=== PATIENT | female | born 1990 | race Hispanic/Latino ===

== ENCOUNTER 2023-04-13 07:39 | Day surgery (SDC) | payer MEDICAID ==
[2023-04-09 10:01] LABS: EOSINOPHILS % (AUTO) 2.6 % (0.0-8.0); LYMPHOCYTES % (AUTO) 30.1 % (21.0-51.0); MEAN CORPUSCULAR HEMOGLOBIN 30.5 pg (27.0-33.0); MEAN CORPUSCULAR HGB CONC 32.1 g/dL (32.0-36.0); MEAN CORPUSCULAR VOLUME 94.9 fL (79-99); MONOCYTES % (AUTO) 6.8 % (3.0-13.0); NEUTROPHILS % (AUTO) 59.1 % (40.0-77.0); PLATELET COUNT (AUTO) 271 K/uL (130-400); RED BLOOD CELL COUNT(AUTO) 4.53 MIL/uL (4.00-5.50); RED CELL DISTRIBUTION WIDTH 12.4 % (11.0-15.5)
[2023-04-13] VITALS (18 sets, daily range): BP systolic 108–128; BP diastolic 55–75
[~2023-04-13 07:39] MED LIST: LEVO75 PO; LIOT5TAB11 PO; SENN8.6T90 PO; VITAMIN B PO; VITAMIN D PO
[2023-04-13] MEDS ORDERED: CEFAZOLIN SODIUM 2 GM VIAL ONE (09:13)
[2023-04-13] MEDS ORDERED: LACTATED RINGERS 1000ML 1,000 ML IV ONE (09:13)
[2023-04-13] MEDS ORDERED: FAMOTIDINE 20MG VIAL IV ONE (10:02)
[2023-04-13] MEDS ORDERED: MIDAZOLAM HCL 1 MG/ML 2ML VIAL ONE (10:05)
[2023-04-13] MEDS ORDERED: GLYCOPYRROLATE 1 MG/5 ML SYRINGE ONE (10:09)
[2023-04-13] MEDS ORDERED: PROPOFOL 10 MG/ML 20ML VIAL IV ONE (10:09)
[2023-04-13] MEDS ORDERED: LIDOCAINE PF 100MG/5ML (2%) SYRINGE 5ML ONE (10:09)
[2023-04-13] MEDS ORDERED: ROCURONIUM 10MG/1ML SYR 10 MG/ML ML ONE (10:10)
[2023-04-13] MEDS ORDERED: FENTANYL CITRATE PF 50 MCG/1 ML 2ML VIAL ONE (10:10)
[2023-04-13] MEDS ORDERED: CEFAZOLIN SODIUM 2 GM VIAL IVPB ONE (10:15)
[2023-04-13] MEDS ORDERED: ONDANSETRON 4MG INJ ONE ×2 (10:29→12:00)
[2023-04-13] MEDS ORDERED: NEOSTIGMINE 5MG/5ML SYR IV ONE (11:33)
[2023-04-13] MEDS ORDERED: KETOROLAC 30MG VIAL (30MG/ML) ONE (12:00)
[2023-04-13] MEDS ORDERED: MEPERIDINE-PF 25 MG/ML SYG ONE (12:00)
== END 2023-04-13 13:40 | disposition home or self-care (01) ==
LOC: DAH 07:39
PROVIDERS: ATTEND Obstetrics & Gynecology
DX: N93.9 Abnormal uterine and vaginal bleeding, unspecified (principal); Z20.822 Contact with and (suspected) exposure to COVID-19; N80.329 Endometriosis of the posterior cul-de-sac, unspecified depth; R10.2 Pelvic and perineal pain; G89.29 Other chronic pain; K21.9 Gastro-esophageal reflux disease without esophagitis; E03.9 Hypothyroidism, unspecified
CPT/HCPCS: 86900 ×2; 87426; 84703; 85025; 86850 ×2; 86901 ×2; 36415 ×2; 58563; 81025; A4663; J7030 ×2; A4351; A4355; J7120; J3010; J3490 ×3; J2710; J2250; J2405 ×2; J1885; J2175; J0690 ×2; A4649; A4215; A4223; A4222; A4221; S0028; A4600; J2001; J2704